=== PATIENT | male | born 1980 | race Caucasian/White ===

== ENCOUNTER 2017-01-01 07:53 | Day surgery (SDC) | payer MEDICAID ==
[~2017-01-01 07:53] MED LIST: IV START KIT ONE; LACTATED RINGERS 1,000 ML IV SCH; LACTATED RINGERS 1,000 ML ONE; PROPOFOL 20 ML IV ONE
[2017-01-01] MEDS ORDERED: IV START KIT ONE ×3 (08:48→09:25)
== END 2017-01-01 10:20 | disposition home or self-care (01) ==
LOC: SDC 07:53
PROVIDERS: ATTEND Internal Medicine Gastroenterology
PROC: 0DJ08ZZ Inspection of Upper Intestinal Tract, Via Natural or Artificial Opening Endoscopic (ICD-10-PCS; principal; 2017-01-01)
DX: R13.10 Dysphagia, unspecified (principal); R12 Heartburn; K92.0 Hematemesis; F32.9 Major depressive disorder, single episode, unspecified; F41.9 Anxiety disorder, unspecified; Q05.4 Unspecified spina bifida with hydrocephalus; Z88.8 Allergy status to other drugs, medicaments and biological substances
CPT/HCPCS: 43235; J7120

== ENCOUNTER 2017-01-11 07:59 | Day surgery (SDC) | payer MEDICAID ==
[~2017-01-11 07:59] MED LIST changes: -IV START KIT ONE; -LACTATED RINGERS 1,000 ML ONE; -PROPOFOL 20 ML IV ONE
[2017-01-11] MEDS ORDERED: IV START KIT ONE (08:33)
[2017-01-11] MEDS ORDERED: LACTATED RINGERS 1,000 ML ONE (08:33)
[2017-01-11] MEDS ORDERED: LIDOCAINE 1% (PRES FREE) 5 ML VIAL ONE (08:36)
[2017-01-11] MEDS ORDERED: PROPOFOL 40 ML IV ONE (09:04)
[2017-01-11 14:14] LABS: HELICOBACTER PYLORII DETECTION NEGATIVE (NEGATIVE)
--- NOTE | 2017-01-15 14:00 | SURGPATH ---
[facility] [address] [place] [id number] Patient Name: EMILEE POZO MR#: [id number] : 1980 Gender: M Specimen #: [id number] Collected: 01/11/2017 Received: 01/14/2017 Reported: 01/15/2017 Submitting Phys: DEDE TORRES Copy To Phys: [facility] Drake ZEPEDA Clinical History / Pre-Operative Diagnosis: Dysphagia, heartburn, rule out gastritis and esophagitis Specimen Source / Surgical Procedure Performed: #1 stomach biopsy, #2 esophagus biopsy 36 cm Interpretation: 1. STOMACH, BIOPSY: - MILD CHRONIC GASTRITIS 2. ESOPHAGUS, AT 36 CM, BIOPSY: - NO PATHOLOGIC DIAGNOSIS Electronically Signed Out Michael Cm M.D. Gross Description: 1. The specimen is received in formalin labeled with the patient's name and "stomach". The specimen consists of two fragments of lerner soft tissue aggregating 0.5 x 0.2 x 0.2 cm. Submitted in toto in one cassette. 2. The specimen is received in formalin labeled with the patient's name and "esophagus biopsy". The specimen consists of a 0.6 x 0.2 x 0.1 cm fragment of white soft tissue. Submitted in toto in one cassette. IBAN Joe Microscopic Description: 1. Levels reveal fragments of gastric mucosa with patchy mild increased chronic inflammation in the lamina propria. Ulceration, dysplasia and malignancy are not seen. A Helicobacter immunostain is performed revealing absence of organisms. 2. Levels reveal fragments of squamous mucosa that lack ulceration, inflammation, dysplasia and malignancy. (Analyte-specific reagents (ASR) are used in many laboratory tests necessary for standard medical care and generally do not require FDA approval. This test was developed and its performance characteristics determined by [facility]. It has not been cleared or approved by the U.S. Food and Drug Administration. [facility] is certified under the Clinical Laboratory Improvement Amendments of 1988 as qualified to perform high complexity clinical laboratory testing. All controls stain as expected.) 1: 83226, 78159 2: 53673 K29.50
== END 2017-01-11 10:47 | disposition home or self-care (01) ==
LOC: SDC 07:59
PROVIDERS: ATTEND Internal Medicine Gastroenterology
PROC: 0D748ZZ Dilation of Esophagogastric Junction, Via Natural or Artificial Opening Endoscopic (ICD-10-PCS; principal; 2017-01-11)
PROC: 0DB58ZX Excision of Esophagus, Via Natural or Artificial Opening Endoscopic, Diagnostic (ICD-10-PCS; 2017-01-11)
PROC: 0DB68ZX Excision of Stomach, Via Natural or Artificial Opening Endoscopic, Diagnostic (ICD-10-PCS; 2017-01-11)
DX: Q39.4 Esophageal web (principal); K21.0 Gastro-esophageal reflux disease with esophagitis; K29.50 Unspecified chronic gastritis without bleeding; K29.80 Duodenitis without bleeding; Q05.4 Unspecified spina bifida with hydrocephalus; F32.9 Major depressive disorder, single episode, unspecified; F41.9 Anxiety disorder, unspecified; E55.9 Vitamin D deficiency, unspecified; Z88.5 Allergy status to narcotic agent; Z91.040 Latex allergy status
CPT/HCPCS: 87081; 43233; 43239; J7120